=== PATIENT | female | born 1995 | race African-American/Black ===

== ENCOUNTER 2018-12-11 20:34 | Emergency (ER) | payer MEDICARE ==
[~2018-12-11] VITALS: Ht 149.9 cm; Wt 50.0 kg
[2018-12-11] MEDS: LIDOCAINE HCL/PF 1% 10 MG/ML 5ML VIAL IJ ONE (23:34)
[2018-12-11] MEDS: CEFTRIAXONE SODIUM 250 MG/VIAL IM ONE (23:34)
[2018-12-11] MEDS: AZITHROMYCIN 500 MG TABLET PO ONE (23:34)
[2018-12-11 23:35] VITALS: BP 136/81
[2018-12-11] MEDS: ONDANSETRON HCL 4MG/2ML INJ IM STA (23:59)
[2018-12-12 00:04] LABS: CLARITY URINE CLOUDY (CLEAR); COLOR URINE YELLOW (YELLOW); KETONES URINE NEGATIVE (NEGATIVE); LEUKOCYTE ESTERASE URINE NEGATIVE (NEGATIVE); NITRITE URINE NEGATIVE (NEGATIVE); OCCULT BLOOD URINE NEGATIVE (NEGATIVE); PH URINE 7.5 (4.5-8.0); PROTEIN URINE NEGATIVE (NEGATIVE); SPECIFIC GRAVITY URINE 1.019 (1.005-1.030); UROBILINOGEN URINE 0.2 E.U./dL (0.2-1.0)
[2018-12-16 09:06] LABS: NEISSERIA GONORRHOEAE NAA Negative (Negative)
[2018-12-17 04:21] LABS: CHLAMYDIA TRACHOMATIS NAA Equivocal (Negative)
== END 2018-12-12 02:04 | disposition home or self-care (01) ==
LOC: ER 20:34
DX: N76.0 Acute vaginitis (principal); N72 Inflammatory disease of cervix uteri; Z98.890 Other specified postprocedural states; Z87.440 Personal history of urinary (tract) infections
CPT/HCPCS: 81003; 81025; 87210; 87491; 87591; 96372; 99283; J0696; J2405; J3490; Z7610